=== PATIENT | male | born 1945 | race Hispanic/Latino ===

== ENCOUNTER 2018-05-28 09:35 | Day surgery (SDC) | payer MEDICARE, MEDICAID ==
[2018-05-25 09:12] VITALS: BMI 21.9
[~2018-05-28 09:35] MED LIST: Ciprofloxacin 400mg/200ml D5W 400 MG/200 ML BAG IVPB ONE; Iohexol 240 (50 ml) ONE; Lidocaine 2% Jelly (Uro-Jet) ONE
[2018-05-28] MEDS ORDERED: Midazolam 2 MG/2 ML VIAL ONE (10:57)
[2018-05-28] MEDS ORDERED: Propofol 10 mg/ml Inj (20 ML) ONE (11:00)
[2018-05-28] MEDS ORDERED: Lidocaine Hydrochloride 20 ML INJ ONE (11:09)
[2018-05-28 12:34] VITALS: O2SAT 100
[2018-05-28 13:11] VITALS: BP 142/83; PULSE 63; RESP 16; TEMP 97.9
--- NOTE | 2018-06-01 07:57 | OP ---
PROCEDURE DATE: 05/28/2018 PREOPERATIVE DIAGNOSIS: Prostatic hypertrophy, chronic retention. POSTOPERATIVE DIAGNOSIS: Prostatic hypertrophy, chronic retention. PROCEDURE: Cystoscopy, dilatation. SURGEON: James Carr MD DESCRIPTION OF PROCEDURE: While the patient in lithotomy position and after starting anesthesia, genitalia prepped and draped in sterile fashion. Cysto revealed urethra normal down, small area narrow, and the bulbous urethra dilated. The bladder inspected which revealed post residual around 300 mL. The bladder trabeculated with saccule and trabeculation. No tumor, no stone. Dome, lateral wall within normal limits. Prostatic urethra 3 cm with bilateral lobe enlargement causing obstruction of the prostatic urethra. While the scope in the verumontanum, the urethra completely occluded. The patient on Flomax, but he still keep large residual. He needs transurethral resection of the prostate. James Carr MD
== END 2018-05-28 13:00 | disposition home or self-care (01) ==
LOC: C.SDS 09:35
PROVIDERS: ATTEND Specialist
DX: N40.1 Benign prostatic hyperplasia with lower urinary tract symptoms (principal); N13.8 Other obstructive and reflux uropathy
CPT/HCPCS: 52000; J0744; J2704

== ENCOUNTER 2018-06-25 08:23 | Observation (INO) | payer MEDICARE, MEDICAID ==
[2018-05-25 09:11] VITALS: BMI 21.9
[2018-06-25] MEDS ORDERED: Ciprofloxacin 400mg/200ml D5W 400 MG/200 ML BAG IVPB ONE (10:28)
[2018-06-25] MEDS ORDERED: Lidocaine 2% Jelly (Uro-Jet) ONE (10:29)
[2018-06-25] MEDS ORDERED: Midazolam 2 MG/2 ML VIAL ONE (10:40)
[2018-06-25] MEDS ORDERED: Propofol 10 mg/ml Inj (20 ML) ONE (10:40)
[2018-06-25] MEDS ORDERED: HYDROmorphone 0.5 mg/0.5 ml ISec IVP PRN (11:42)
[2018-06-25] MEDS ORDERED: Oxycodone/Acetaminophen 5/325 mg Tab PO PRN (12:00)
[2018-06-25 18:52] VITALS: RESP 20; O2SAT 97
[2018-06-25] MEDS: Sodium Chloride 0.45% 1,000 ML IV SCH (19:10)
[2018-06-25] MEDS: Metoprolol Succinate 50 mg XL Tab PO SCH (21:26)
--- NOTE | 2018-06-26 00:46 | OP ---
PROCEDURE DATE: 06/25/2018 PREOPERATIVE DIAGNOSES: Prostatic hypertrophy, moderate retention. POSTOPERATIVE DIAGNOSES: Prostatic hypertrophy, moderate retention. PROCEDURE: Transurethral resection of the prostate. DESCRIPTION OF PROCEDURE: While the patient in lithotomy position and after starting anesthesia, the genitalia were prepped and draped in a sterile fashion. The patient was given Cipro 400 mg IV piggyback. Urethra was dilated with a curved metal sound to #28. Resectoscope sheath 26 was inserted. The bladder heavily trabeculated. No tumor seen and no stone. The trigone closed to the median lobe and the lateral lobe enlargement causing obstruction. While the scope in the veru, the resection of the median lobe and this very was close to the both ureteral orifices. The ureteral orifices were seen very well after dissection. A deep groove made at 1 o'clock, another deep groove at 1 o'clock. All the lateral tissues were resected. There was no obstruction between the veru and the bladder, the bladder neck on the level of the trigone. The patient has no bleeding. All the tissues were irrigated out. There were multiple stones in the left side of the prostate. This was evacuated and sent with the tissue. While the scope in veru, the bladder neck could be seen. Pictures were taken before and after. After removing the scope, a #22 three-way Francis was inserted. The balloon was then inflated to 30 mL. Irrigation was clear. The patient tolerated the procedure well and was transferred to the recovery room in stable condition. James Carr MD
[2018-06-26] MEDS: Sodium Chloride 0.45% 1,000 ML IV SCH (04:35)
[2018-06-26] MEDS: Metoprolol Succinate 50 mg XL Tab PO SCH (10:17)
[2018-06-26 10:20] VITALS: BP 147/80; PULSE 75; TEMP 98.2
== END 2018-06-26 15:47 | disposition home or self-care (01) ==
LOC: C.SDS 08:23 → EDSTATUS 10:15 → C.9S 11:56 → C.5S 18:46
PROVIDERS: ADMIT Specialist; ATTEND Specialist
DX: N40.1 Benign prostatic hyperplasia with lower urinary tract symptoms (principal); R33.8 Other retention of urine
CPT/HCPCS: 52601; 88305; G0378; J0744; J7030